=== PATIENT | female | born 1995 | race Caucasian/White ===

== ENCOUNTER 2017-03-30 00:47 | Emergency (ER) | payer MEDICAID ==
[2017-03-30 00:58] VITALS: BP 85/67
[2017-03-30] MEDS ORDERED: Ondansetron 4 MG/2 ML SDV IVPUSH ONE (01:13)
[2017-03-30] MEDS ORDERED: Sodium Chloride 0.9% 1,000 ML IV SCH (01:15)
--- NOTE | 2017-03-30 01:15 | EDM.PDOC ---
ED HPI GENERAL MEDICAL PROBLEM - General Chief Complaint: Gastrointestinal Problem Stated Complaint: STOMACH ILLNESS Time Seen by Provider: 03/30/17 00:55 Source of Information: Reports: Patient History Limitations: Reports: No Limitations - History of Present Illness INITIAL COMMENTS - FREE TEXT/NARRATIVE: This is a 21-year-old female. She had onset of constant diarrhea pretty much since late yesterday afternoon and then onset of nausea and vomiting around 9 PM last night. What she cut it cleared out her stomach was only vomiting up bile her stomach started to feel better and it was much less cramping. She comes to the ER because of the constant diarrhea. She does have hemorrhoids with there was some blood in the diarrhea today. Her abdominal cramps since essentially eased up but she is here for evaluation. She denies any fever or chills. Her daughter apparently had a viral syndrome over the last couple of days with the same type symptoms of diarrhea and vomiting. - Related Data Allergies Allergy/AdvReac Type Severity Reaction Status Date / Time hydrocodone bitartrate Allergy Itching Verified 09/30/15 12:25 [From Lortab] zolpidem tartrate Allergy Hives Verified 09/30/15 12:25 [From Ambien] Home Meds: Home Meds ALPRAZolam [Alprazolam] 1 mg PO TID PRN 03/30/17 [History] Dicyclomine [Bentyl] 20 mg PO Q8HR PRN #9 tab 03/30/17 [Rx] Ondansetron [Zofran] 4 mg PO Q6H PRN #12 tab 03/30/17 [Rx] Past Medical History - Past Health History Medical/Surgical History: Denies Medical/Surgical History - Past Surgical History HEENT Surgical History: Reports: Oral Surgery GI Surgical History: Reports: Cholecystectomy Social & Family History - Family History Family Medical History: Noncontributory - Tobacco Use Smoking Status *Q: Current Every Day Smoker Years of Tobacco use: 8 Packs/Tins Daily: 0.1 Used Tobacco, but Quit: Yes Month Tobacco Last Used: Jun 2014 - Recreational Drug Use Recreational Drug Use: No Recreational Drug Type: Reports: Marijuana/Hashish - Living Situation & Occupation Living situation: Reports: Single, with Family ED ROS GENERAL - Review of Systems Review Of Systems: See Below Constitutional: Reports: Fatigue. Denies: Fever, Chills HEENT: Reports: No Symptoms Respiratory: Reports: No Symptoms Cardiovascular: Reports: No Symptoms Endocrine: Reports: No Symptoms GI/Abdominal: Reports: Abdominal Pain, Diarrhea, Nausea, Vomiting : Reports: No Symptoms Musculoskeletal: Reports: No Symptoms Skin: Reports: No Symptoms Neurological: Reports: No Symptoms Psychiatric: Reports: No Symptoms Hematologic/Lymphatic: Reports: No Symptoms ED EXAM, GI/ABD - Physical Exam Exam: See Below Exam Limited By: No Limitations General Appearance: Alert, WD/WN, No Apparent Distress Eyes: Bilateral: Normal Appearance Ears: Normal External Exam Nose: Normal Inspection Throat/Mouth: Normal Inspection, Normal Lips, Normal Voice, No Airway Compromise Head: Normocephalic Neck: Supple Respiratory/Chest: No Respiratory Distress, Lungs Clear, Normal Breath Sounds Cardiovascular: Regular Rate, Rhythm, No Murmur GI/Abdominal Exam: Soft, Non-Tender, Other (Bowel sounds are decreased, she does not have a gallbladder so there is no specific tenderness on palpation of the abdomen) Back Exam: Full Range of Motion Extremities: Normal Inspection, Normal Range of Motion Neurological: Alert, Oriented Psychiatric: Normal Affect, Normal Mood Skin Exam: Warm, Dry Course - Vital Signs Last Recorded V/S: Last Vital Signs Temp 96.8 F 03/30/17 00:55 Pulse Resp 16 03/30/17 00:55 BP 85/67 L 03/30/17 00:55 Pulse Ox 95 03/30/17 00:55 - Orders/Labs/Meds Orders: Active Orders 24 hr Category Date Time Status CULTURE STOOL + SHIGATOX [RM] Stat Lab 03/30/17 01:50 Received Sodium Chloride 0.9% [Normal Saline] 1,000 ml Med 03/30/17 01:15 Active IV ASDIRECTED Medication Orders Sodium Chloride (Normal Saline) 1,000 mls @ 1,000 mls/hr IV ASDIRECTED BO Last Admin: 03/30/17 01:31 Dose: 1,000 mls/hr Labs: Laboratory Tests 03/30/17 03/30/17 03/30/17 Range/Units 01:20 01:20 01:20 WBC 16.81 H (3.98-10.04) K/mm3 RBC 4.97 (3.98-5.22) M/mm3 Hgb 14.7 (11.2-15.7) gm/L Hct 44.0 (34.1-44.9) % MCV 88.5 (79.4-94.8) fl MCH 29.6 (25.6-32.2) pg MCHC 33.4 (32.2-35.5) g/dl RDW Std Deviation 40.5 (36.4-46.3) fL Plt Count 333 (182-369) K/mm3 MPV 9.6 (9.4-12.3) fl Neut % (Auto) 86.6 H (34.0-71.1) % Lymph % (Auto) 6.5 L (19.3-51.7) % [place] % (Auto) 5.7 (4.7-12.5) % Eos % (Auto) 0.8 (0.7-5.8) Baso % (Auto) 0.1 (0.1-1.2) % Neut # (Auto) 14.54 H (1.56-6.13) K/mm3 Lymph # (Auto) 1.10 L (1.18-3.74) K/mm3 [place] # (Auto) 0.96 H (0.24-0.36) K/mm3 Eos # (Auto) 0.14 (0.04-0.36) K/mm3 Baso # (Auto) 0.02 (0.01-0.08) K/mm3 Manual Slide Review Normal smear Sodium 140 (136-145) mEq/L Potassium 3.7 (3.5-5.1) mEq/L Chloride 106 (98-107) mEq/L Carbon Dioxide 21 (21-32) mEq/L Anion Gap 16.7 H (5-15) BUN 14 (7-18) mg/dL Creatinine 1.0 (0.55-1.02) mg/dL Est Cr Clr Drug Dosing 82.61 mL/min Estimated GFR (MDRD) > 60 (>60) mL/min BUN/Creatinine Ratio 14.0 (14-18) Glucose 147 H (74-106) mg/dL Calcium 8.5 (8.5-10.1) mg/dL Total Bilirubin 0.5 (0.2-1.0) mg/dL AST 23 (15-37) U/L ALT 36 (14-59) U/L Alkaline Phosphatase 72 (46-116) U/L Total Protein 7.8 (6.4-8.2) g/dl Albumin 3.7 (3.4-5.0) g/dl Globulin 4.1 gm/dL Albumin/Globulin Ratio 0.9 L (1-2) HCG, Qual Negative (NEGATIVE) Meds: Medications Generic Name Dose Route Start Last Admin Trade Name Freq PRN Reason Stop Dose Admin Sodium Chloride 1,000 mls @ 1,000 mls/hr 03/30/17 01:15 03/30/17 01:31 Normal Saline IV 1,000 mls/hr ASDIRECTED BO Administration Discontinued Medications Generic Name Dose Route Start Last Admin Trade Name Freq PRN Reason Stop Dose Admin Sodium Chloride 1,000 mls @ 999 mls/hr 03/30/17 02:00 03/30/17 02:07 Normal Saline IV 03/30/17 03:00 999 mls/hr ONETIME ONE Administration Ondansetron HCl 4 mg 03/30/17 01:13 03/30/17 01:32 Zofran IVPUSH 03/30/17 01:14 4 mg ONETIME ONE Administration - Re-Assessments/Exams Free Text/Narrative Re-Assessment/Exam: 03/30/17 03:06 I spoke to the patient and her regarding the lab results. Her white count slightly elevated but everything else appears to be normal. She is negative for rotavirus and negative for white cells. I believe this is a viral gastroenteritis. She is feeling much better with the fluids and wants to go home. I did caution her that she might have some several bouts of diarrhea as well over the next 24 hours but to drink lots of fluids and keep herself well hydrated. Departure - Departure Time of Disposition: 03:07 Disposition: Home, Self-Care 01 Condition: Good Clinical Impression: Gastroenteritis Nausea and vomiting Qualifiers: Vomiting type: unspecified Vomiting Intractability: non-intractable Qualified Code(s): R11.2 - Nausea with vomiting, unspecified Diarrhea Qualifiers: Diarrhea type: unspecified type Qualified Code(s): R19.7 - Diarrhea, unspecified - Discharge Information Prescriptions: Dicyclomine [Bentyl] 20 mg PO Q8HR PRN #9 tab PRN Reason: Abdominal Pain Ondansetron [Zofran] 4 mg PO Q6H PRN #12 tab PRN Reason: Nausea Instructions: Viral Gastroenteritis, Adult, [id number] Referrals: Olive Latif PA [Primary Care Provider] - Forms: ED Department Discharge Additional Instructions: Continue to drink lots of fluids especially water, avoid anything with caffeine and sodas, to not eat anything for about 24 hours and just drink liquids, and when feeling better you may advance your diet to toast and oatmeal and things that are easy to digest but no salads no meets no cheese for at least 72 hours, recheck with your family doctor later this week if needed, return to the ER if needed - My Orders Last 24 Hours: My Active Orders 03/30/17 01:15 Sodium Chloride 0.9% [Normal Saline] 1,000 ml IV ASDIRECTED 03/30/17 01:50 CULTURE STOOL + SHIGATOX [RM] Stat - Assessment/Plan Last 24 Hours: My Active Orders 03/30/17 01:15 Sodium Chloride 0.9% [Normal Saline] 1,000 ml IV ASDIRECTED 03/30/17 01:50 CULTURE STOOL + SHIGATOX [RM] Stat
[2017-03-30] MEDS ORDERED: Sodium Chloride 0.9% 1,000 ML IV ONE (02:00)
== END 2017-03-30 03:18 | disposition home or self-care (01) ==
LOC: JD.ED 00:47
DX: K52.9 Noninfective gastroenteritis and colitis, unspecified (principal); F17.210 Nicotine dependence, cigarettes, uncomplicated; Z79.899 Other long term (current) drug therapy
CPT/HCPCS: 36415; 80053; 84703; 85025; 87046; 87425; 89055; 96361; 96374; 99284; J2405; J7040; 87427

== ENCOUNTER 2019-05-13 20:31 | Emergency (ER) | payer SELFPAY ==
[2019-05-13 20:54] VITALS: BP 138/88; PULSE 101
[2019-05-13] MEDS ORDERED: Sodium Chloride 0.9% 1,000 ML IV ONE (21:08)
--- NOTE | 2019-05-13 21:34 | EDM.PDOC ---
ED HPI GENERAL MEDICAL PROBLEM - General Chief Complaint: Gastrointestinal Problem Stated Complaint: 12 WEEKS PREG VOMITING IN PAIN Time Seen by Provider: 05/13/19 20:54 Source of Information: Reports: Patient History Limitations: Reports: No Limitations - History of Present Illness INITIAL COMMENTS - FREE TEXT/NARRATIVE: TRIAGE NOTE -- Pt presents to ER for complaints of nausea, vomiting and diarrhea. Pt states that she is approximately 12 weeks , LMP was at the end of January. Pt has not seen an OB yet, but is scheduled to see Dr. Burns on . Pt states that she has had nausea/vomiting/diarrhea since the beginning of the . Pt states that she vomits and has diarrhea with everything that she eats. Pt has lost 10 lbs since this as well which is why she decided to come in [facility] instead of waiting for the OB appt. Pt is a , had preeclampsia with her first . BP 138/88 in ER, HR 101. [ End ] Above-noted. His primary problem is nausea. There has been some occasional diarrhea additionally. As noted this is been troubling her since the beginning of her . She is known to be and has been tested at urgent care and is been referred to OB. She is not seen brake holder yet. She has made some use of nausea medications. She has taken Benadryl apparently in the past couple of days and also a Compazine. She is continuing to have nausea and vomiting. There is been no fever or any other symptom of acute medical illness. - Related Data Allergies Allergy/AdvReac Type Severity Reaction Status Date / Time hydrocodone bitartrate Allergy Itching Verified 05/13/19 20:54 [From Lortab] zolpidem tartrate Allergy Hives Verified 05/13/19 20:54 [From Ambien] Home Meds: Home Meds Acetaminophen [Tylenol] 325 mg PO Q4H PRN 05/13/19 [History] Dimenhydrinate [Dramamine] 50 mg PO DAILY PRN 05/13/19 [History] Ondansetron [Zofran ODT] 4 mg PO Q6H PRN 05/13/19 [History] [id number]/Iron Fumarate/FA/DSS [ 19 Tablet] 1 each PO DAILY 05/13/19 [ History] diphenhydrAMINE [Benadryl] 50 mg PO BEDTIME 05/13/19 [History] Past Medical History - Past Health History Medical/Surgical History: Denies Medical/Surgical History HEENT History: Reports: None Cardiovascular History: Reports: None Respiratory History: Reports: None Gastrointestinal History: Reports: None Genitourinary History: Reports: None STRUCTURAL BIOLOGIST History: Reports: Polycystic Ovaries, , Other (See Below) Other STRUCTURAL BIOLOGIST History: PreEclampsia Musculoskeletal History: Reports: None Neurological History: Reports: None Psychiatric History: Reports: None Endocrine/Metabolic History: Reports: None Hematologic History: Reports: None Immunologic History: Reports: None Oncologic (Cancer) History: Reports: None Dermatologic History: Reports: None - Infectious Disease History Infectious Disease History: Reports: None - Past Surgical History Head Surgeries/Procedures: Reports: None HEENT Surgical History: Reports: Oral Surgery GI Surgical History: Reports: Cholecystectomy Female Surgical History: Reports: None - History Comment History Comment: Patient has no chronic medical problems. She takes no medications on a regular basis. Social & Family History - Family History Family Medical History: Noncontributory - Tobacco Use Smoking Status *Q: Former Smoker (Says she stopped smoking when she found she was .) Used Tobacco, but Quit: Yes Month/Year Tobacco Last Used: 02/2019 - Caffeine Use Caffeine Use: Reports: Soda - Recreational Drug Use Recreational Drug Use: No - Living Situation & Occupation Living situation: Reports: Single, with Family ED ROS GENERAL - Review of Systems Review Of Systems: Comprehensive ROS is negative, except as noted in HPI. ED EXAM, GI/ABD - Physical Exam Exam: See Below Exam Limited By: No Limitations General Appearance: Alert, WD/WN, No Apparent Distress Eyes: Bilateral: EOMI Ears: Normal External Exam Nose: Normal Inspection Throat/Mouth: Normal Inspection Head: Atraumatic, Normocephalic Neck: Normal Inspection, Supple Respiratory/Chest: No Respiratory Distress, Lungs Clear, Normal Breath Sounds Cardiovascular: Regular Rate, Rhythm, No Edema GI/Abdominal Exam: Soft, Non-Tender Back Exam: Normal Inspection Extremities: Normal Inspection, Non-Tender, No Pedal Edema Neurological: Alert, Oriented, CN II-XII Intact, Normal Cognition Psychiatric: Normal Affect, Normal Mood Skin Exam: Warm, Dry Course - Vital Signs Text/Narrative:: The patient received a liter of IV fluids and feels quite well afterwards. She is happy to be discharged home. She will be seeing her brake holder within a few days. Precautions for return to ER. Push clear liquids and be on clear liquids only for about 12 hours before reintroducing diet. Last Recorded V/S: Last Vital Signs Temp 36.4 C 05/13/19 20:50 Pulse 101 H 05/13/19 20:50 Resp 16 05/13/19 20:50 BP 138/88 05/13/19 20:50 Pulse Ox 98 05/13/19 20:50 - Orders/Labs/Meds Meds: Medications Discontinued Medications Generic Name Dose Route Start Last Admin Trade Name Freq PRN Reason Stop Dose Admin Sodium Chloride 1,000 mls @ 1,000 mls/hr 05/13/19 21:08 05/13/19 21:16 Normal Saline IV 05/13/19 22:07 1,000 mls/hr ONETIME ONE Administration Departure - Departure Time of Disposition: 22:23 Disposition: Home, Self-Care 01 Condition: Good Clinical Impression: Hyperemesis gravidarum - Discharge Information Referrals: Marlen Ware PA-C [Primary Care Provider] - Forms: ED Department Discharge, ED Return to Work/School Form Sepsis Event Note - Evaluation Sepsis Screening Result: No Definite Risk - Focused Exam Vital Signs: Vital Signs Temp Pulse Resp BP Pulse Ox 05/13/19 20:50 36.4 C 101 H 16 138/88 98 Date Exam was Performed: 05/13/19 Time Exam was Performed: 22:21
== END 2019-05-13 22:30 | disposition home or self-care (01) ==
LOC: JD.ED 20:31
DX: O21.0 Mild hyperemesis gravidarum (principal); Z88.8 Allergy status to other drugs, medicaments and biological substances; Z79.899 Other long term (current) drug therapy; Z87.891 Personal history of nicotine dependence; Z3A.12 12 weeks gestation of pregnancy
CPT/HCPCS: 96360; 99283; J7030

== ENCOUNTER 2022-07-03 10:45 | Emergency (ER) | payer SELFPAY ==
[2022-07-03 10:54] VITALS: BP 138/105; PULSE 84
[2022-07-03] MEDS ORDERED: Sodium Chloride 0.9% 10 ML Syringe FLUSH PRN (11:05)
[2022-07-03] MEDS ORDERED: Ondansetron 4 MG/2 ML SDV IVPUSH ONE (11:15)
[2022-07-03] MEDS ORDERED: Sodium Chloride 0.9% 1,000 ML IV STA (11:15)
[2022-07-03 11:40] LABS: ESTIMATED GFR 90 mL/min (>60)
== END 2022-07-03 13:19 | disposition home or self-care (01) ==
LOC: JD.ED 10:45
DX: A08.4 Viral intestinal infection, unspecified (principal); Z88.5 Allergy status to narcotic agent; Z88.8 Allergy status to other drugs, medicaments and biological substances
CPT/HCPCS: 36415; 80053; 81001; 83690; 84703; 85025; 86140; 96361; 96374; 99284; J2405; J3490; J7030; 99283